=== PATIENT | male | born 1960 | race American Indian/Alaskan Native ===

== ENCOUNTER 2018-12-02 12:50 | Emergency (ER) | payer MEDICAID, OTHER ==
--- NOTE | 2018-12-02 12:55 | Emergency Department Report ---
Blank Doc - Documentation Documentation: [id number] that presents with left figner lac. This initial assessment/diagnostic orders/clinical plan/treatment(s) is/are subject to change based on patient's health status, clinical progression and re- assessment by fellow clinical providers in the ED. Further treatment and workup at subsequent clinical providers discretion. Patient/guardians urged not to elope from the ED as their condition may be serious if not clinically assessed and managed. Initial orders include: 1- Patient sent to [facility] for further evaluation and treatment
[2018-12-02 12:56] VITALS: BP 130/68
== END 2018-12-02 15:02 | disposition left against medical advice (07) ==
LOC: ED 12:50
DX: S61.211A Laceration without foreign body of left index finger without damage to nail, initial encounter (principal); Z53.21 Procedure and treatment not carried out due to patient leaving prior to being seen by health care provider

== ENCOUNTER 2018-12-02 17:11 | Emergency (ER) | payer MEDICAID ==
--- NOTE | 2018-12-02 17:20 | Emergency Department Report ---
Blank Doc - Documentation Documentation: [id number] that presents with left figner lac. This initial assessment/diagnostic orders/clinical plan/treatment(s) is/are subject to change based on patient's health status, clinical progression and re- assessment by fellow clinical providers in the ED. Further treatment and workup at subsequent clinical providers discretion. Patient/guardians urged not to elope from the ED as their condition may be serious if not clinically assessed and managed. Initial orders include: 1- Patient sent to [facility] for further evaluation and treatment
[2018-12-02] MEDS ORDERED: IBUPROFEN PO ONE (19:46)
[2018-12-02] MEDS ORDERED: TYLENOL PO ONE (19:47)
[2018-12-02] MEDS ORDERED: XYLOCAINE 1% MPF 5 mL INFILTRATI ONE (19:47)
[2018-12-02] MEDS ORDERED: KEFLEX PO ONE (19:47)
--- NOTE | 2018-12-02 20:18 | XRay Report ---
Fingers 3 views INDICATION: Finger laceration to index finger. IMPRESSION: There is a deep laceration involving the index finger distally with underlying fracture o f the distal tuft of the index finger consistent with open fracture. Signer Name: Darien Chung MD Signed: 12/02/2018 8:14 PM Workstation Name: [id number]
--- NOTE | 2018-12-02 21:02 | Emergency Department Report ---
- General Chief Complaint: Laceration/Recheck/Suture Stated Complaint: CUT ON FINGER Time Seen by Provider: 12/02/18 17:19 Source: patient Mode of arrival: Ambulatory Limitations: No Limitations - History of Present Illness Initial Comments: Patient is a 57-year-old -[place] male with no past medical history who presents to the ED with complaint of acute onset persistent painful swelling bleeding distal left index finger laceration after a trailer hinge attached to his pickup truck hit him on the left index finger about 6 hours ago. Patient states that the pain and the bleeding of been persistent and the swelling. Patient denies numbness or tingling or weakness of the left index finger. Patient denies any other injury and states that he is up-to-date with his t etanus vaccination. -: Sudden, hour(s) (6) Location: other (left index finger) Extremity Location: Left: Hand (distal left index finger laceration) Place: work Context: accidental Associated Symptoms: pain. denies: loss of feeling/numbness, suspect foreign body present, unable to move injured part, weakness followed by dizziness, nausea/vomiting, fever, other - Related Data Previous Rx's Medication Instructions Recorded Last Taken Type Cyclobenzaprine [Flexeril 10mg] 10 mg PO Q8H PRN #21 tablet 07/20/14 Unknown Rx traMADol [Ultram 50 MG tab] 50 mg PO Q6HR PRN #20 tablet 07/20/14 Unknown Rx Ibuprofen [Motrin] 600 mg PO Q8H PRN #20 tablet 12/02/18 Unknown Rx cephALEXin [Keflex] 500 mg PO Q8HR #30 cap 12/02/18 Unknown Rx traMADol [Ultram] 50 mg PO Q6HR PRN #12 tablet 12/02/18 Unknown Rx Allergies Allergy/AdvReac Type Severity Reaction Status Date / Time No Known Allergies Allergy Verified 07/20/14 08:55 ED Review of Systems ROS: Stated complaint: CUT ON FINGER Other details as noted in HPI Constitutional: denies: chills, fever Eyes: denies: eye pain, eye discharge, vision change ENT: denies: ear pain, throat pain Respiratory: denies: cough, shortness of breath, wheezing Cardiovascular: denies: chest pain, palpitations Endocrine: no symptoms reported Gastrointestinal: denies: abdominal pain, nausea, diarrhea Genitourinary: denies: urgency, dysuria Musculoskeletal: arthralgia (distal left index finger laceration and pain). denies: back pain, joint swelling Skin: other (Bleeding painful laceration of distal left index finger). denies: rash, lesions Neurological: denies: headache, weakness, paresthesias Psychiatric: denies: anxiety, depression Hematological/Lymphatic: denies: easy bleeding, easy bruising ED Past Medical Hx - Past Medical History Previous Medical History?: Yes Hx Hypertension: Yes - Surgical History Past Surgical History?: No - Social History Smoking Status: Never Smoker Substance Use Type: None - Medications Home Medications: Home Medications Medication Instructions Recorded Confirmed Last Taken Type Cyclobenzaprine [Flexeril 10mg] 10 mg PO Q8H PRN #21 tablet 07/20/14 Unknown Rx traMADol [Ultram 50 MG tab] 50 mg PO Q6HR PRN #20 tablet 07/20/14 Unknown Rx Ibuprofen [Motrin] 600 mg PO Q8H PRN #20 tablet 12/02/18 Unknown Rx cephALEXin [Keflex] 500 mg PO Q8HR #30 cap 12/02/18 Unknown Rx traMADol [Ultram] 50 mg PO Q6HR PRN #12 tablet 12/02/18 Unknown Rx ED Physical Exam - General Limitations: No Limitations General appearance: alert, in no apparent distress - Head Head exam: Present: atraumatic, normocephalic, normal inspection - Eye Eye exam: Present: normal appearance, PERRL, EOMI Pupils: Present: normal accommodation - ENT ENT exam: Present: normal exam, normal orophraynx, mucous membranes moist, TM's normal bilaterally, normal external ear exam - Neck Neck exam: Present: normal inspection, full ROM - Respiratory Respiratory exam: Present: normal lung sounds bilaterally. Absent: respiratory distress, wheezes, chest wall tenderness, prolonged expiratory - Cardiovascular Cardiovascular Exam: Present: regular rate, normal rhythm. Absent: systolic murmur, diastolic murmur, rubs, gallop - GI/Abdominal GI/Abdominal exam: Present: soft, normal bowel sounds. Absent: tenderness, guarding, rebound - Rectal Rectal exam: Present: deferred - Extremities Exam Extremities exam: Present: normal inspection, tenderness (Distal left index finger bleeding 5 cm laceration and tenderness), normal capillary refill - Back Exam Back exam: Present: normal inspection, full ROM. Absent: tenderness, CVA tenderness (R), muscle spasm, paraspinal tenderness - Neurological Exam Neurological exam: Present: alert, oriented X3, CN II-XII intact, normal gait, reflexes normal - Psychiatric Psychiatric exam: Present: normal affect, normal mood - Skin Skin exam: Present: warm, dry, intact, normal color, other (Bleeding distal l eft index finger 5 cm laceration). Absent: rash ED Course Vital Signs 12/02/18 17:16 Temperature 98.7 F Pulse Rate 60 Respiratory 17 Rate Blood Pressure 132/80 [Left] O2 Sat by Pulse 100 Oximetry - Reevaluation(s) Reevaluation #1: 12/02/18 21:10 This is a 57-year-old male who presented to the ED with distal left index finger bleeding laceration. In the ED, patient is alert and oriented 3 and is not in distress but appears to be in pain. Patient was treated for pain and since the patient is updated with his tetanus vaccination, none was given. This visit. The left index finger x-ray shows a deep laceration involving the index finger distally with underlying fracture of the distal tuft of the index finger consistent with open fracture. The left index finger laceration was sutured protocol after cleaning it thoroughly. Patient was also treated with oral antibiotics in the ED. Patient tolerated the procedure well and the wound was dressed appropriately and the finger splinted with a spica splint. Patient was discharged home on antibiotics and pain medication and referred to the ortho pedic surgeon respiratory care practitioner Dr. Young for follow-up. Patient is advised to contact tenderness in the first thing in the morning to schedule an appointment for follow-up, and he verbalized understanding and promise to comply. Patient was advised to return to the ED immediately if symptoms get worse. Otherwise the patient is advised to return to the ED in 12-14 days for suture removal. 12/02/18 21:12 - Laceration /Wound Repair Left Distal Finger Wound Location: upper extremity (Distal left index finger) Wound Length (cm): 5 Wound's Depth, Shape: superficial, irregular Wound Explored: contaminated Irrigated w/ Saline (ccs): 50 Betadine Prep?: Yes Anesthesia: 1% Lidocaine Volume Anesthetic (ccs): 5 Wound Debrided: extensive Wound Repaired With: sutures Suture Size/Type: 4:0, proline Number of Sutures: 9 Layer Closure?: No Sterile Dressing Applied?: Yes Progress: Patient tolerated the procedure. The patient's left index finger is neurovascularly intact after the procedure. Patient discharged home on antibiotics and advised follow-up with the orthopedic surgeon respiratory care practitioner Dr. Young for further evaluation. Patient advised to return to the ED in 2 weeks for suture removal. ED Medical Decision Making - Radiology Data Radiology results: report reviewed, image reviewed Findings [facility] [address] [place] [address] XRay Report Signed Patient: GAGE FARR JR MR#: [id number] : 1960 Acct:[id number] Age/Sex: 57 / M ADM Date: 12/02/18 Loc: ED Attending Dr: Ordering Physician: DAVID SELBY Date of Service: 12/02/18 Procedure(s): XR finger(s) 2+V LT Accession Number(s): [id number] cc: DAVID SELBY Fluoro Time In Minutes: Fingers 3 views INDICATION: Finger laceration to index finger. IMPRESSION: There is a deep laceration involving the index finger distally with underlying fracture of the distal tuft of the index finger consistent with open fracture. Signer Name: Darien Chung MD Signed: 12/02/2018 8:14 PM Workstation Name: [id number] Transcribed By: Dictated By: Darien Chung MD Electronically Authenticated By: Darien Chung MD Signed Date/Time: 12/02/182013 - Medical Decision Making This is a 57-year-old male who presented to the ED with distal left index finger bleeding laceration. In the ED, patient is alert and oriented 3 and is not in distress but appears to be in pain. Patient was treated for pain and since the patient is updated with his tetanus vaccination, none was given. This visit. The left index finger x-ray shows a deep laceration involving the index finger distally with underlying fracture of the distal tuft of the index finger consistent with open fracture. The left index finger laceration was sutured protocol after cleaning it thoroughly. Patient was also treated with oral antibiotics in the ED. Patient tolerated the procedure well and the wound was dressed appropriately and the finger splinted with a spica splint. Patient was discharged home on antibiotics and pain medication and referred to the orthopedic surgeon respiratory care practitioner Dr. Young for follow-up. Patient is advised to contact tenderness in the first thing in the morning to schedule an appointment for follow-up, and he verbalized understanding and promise to comply. Patient was advised to return to the ED immediately if symptoms get worse. Otherwise the patient is advised to return to the ED in 12-14 days for suture removal. - Differential Diagnosis left index finger fracture; left index finger laceration; finger contusion Critical care attestation.: If time is entered above; I have spent that time in minutes in the direct care of this critically ill patient, excluding procedure time. ED Disposition Clinical Impression: Laceration of left index finger w/o foreign body w/o damage to nail Qualifiers: Encounter type: initial encounter Qualified Code(s): S61.211A - Laceration without foreign body of left index finger without damage to nail, initial encounter Open fracture of phalanx of left index finger Qualifiers: Encounter type: initial encounter Phalanx: distal Fracture alignment: displaced Qualified Code(s): S62.631B - Displaced fracture of distal phalanx of left index finger, initial encounter for open fracture Disposition: DC-01 TO HOME OR SELFCARE Is pt being admited?: No Does the pt Need Aspirin: No Condition: Stable Instructions: Finger Fracture (ED), Finger Laceration (ED) Additional Instructions: Take medications with food, drink plenty of fluids and follow-up with the orthopedic surgeon Dr. Young for further evaluation. Contact Dr. Young's office first thing in the morning to schedule an appointment for follow-up. Return to the ED immediately if symptoms get worse. Prescriptions: cephALEXin [Keflex] 500 mg PO Q8HR #30 cap Ibuprofen [Motrin] 600 mg PO Q8H PRN #20 tablet PRN Reason: Pain traMADol [Ultram] 50 mg PO Q6HR PRN #12 tablet PRN Reason: Pain Referrals: BOBBI YOUNG MD [Staff Physician] - 3-5 Days Time of Disposition: 21:00 Print Language: PARAGUAYAN
[2018-12-02 21:13] VITALS: BP 148/92
== END 2018-12-02 21:13 | disposition home or self-care (01) ==
LOC: ED 17:11
DX: S62.631B Displaced fracture of distal phalanx of left index finger, initial encounter for open fracture (principal); I10 Essential (primary) hypertension; Z79.899 Other long term (current) drug therapy; W22.8XXA Striking against or struck by other objects, initial encounter; Y93.89 Activity, other specified; Y92.89 Other specified places as the place of occurrence of the external cause; Y99.8 Other external cause status

== ENCOUNTER 2020-07-15 09:34 | Emergency (ER) | payer MEDICARE ==
[2020-07-15 09:46] VITALS: BP 148/100
--- NOTE | 2020-07-15 09:47 | Emergency Department Report ---
ED Medical Clearance HPI - General Chief complaint: Medical Clearance Stated complaint: MISSED DIALYSIS Time Seen by Provider: 07/15/20 09:42 Source: patient Mode of arrival: Ambulatory - History of Present Illness Initial comments: Mr. Greenfield is a 59-year-old male who presents to the emergency room stating that he missed dialysis on and that he needs medical clearance to return to dialysis. He denies any chest pain shortness of breath headache no nausea no vomiting. His blood pressure is 148/100 temperature of 98.2 he is in no acute distress with no complaints. His next dialysis appointment is at 10 AM today and he is able to get there Alledged Intoxication: No Compliant with Home Medications: No Traumatic Symptoms: denies traumatic injury Treatments Prior to Arrival: none Allergies/Adverse reactions: Allergies Allergy/AdvReac Type Severity Reaction Status Date / Time No Known Allergies Allergy Verified 04/05/20 17:13 ED Review of Systems ROS: Stated complaint: MISSED DIALYSIS Other details as noted in HPI Comment: All other systems reviewed and negative Constitutional: no symptoms reported Respiratory: no symptoms reported Endocrine: no symptoms reported ED Past Medical Hx - Past Medical History Previous Medical History?: Yes Hx Hypertension: Yes Hx Renal Disease: Yes (HD [id number]) - Surgical History Past Surgical History?: Yes Additional Surgical History: Nephrectomy, Right arm AV fistula - Social History Smoking Status: Never Smoker Substance Use Type: None ED Physical Exam - General Limitations: No Limitations General appearance: alert, in no apparent distress - Head Head exam: Present: atraumatic - Eye Eye exam: Present: normal appearance - ENT ENT exam: Present: normal exam - Neck Neck exam: Present: normal inspection - Respiratory Respiratory exam: Present: normal lung sounds bilaterally - Cardiovascular Cardiovascular Exam: Present: regular rate - Extremities Exam Extremities exam: Present: other (Right upper arm AV fistula) ED Course Vital Signs 07/15/20 09:39 Temperature 98.2 F Pulse Rate 69 Respiratory 20 Rate Blood Pressure 148/100 O2 Sat by Pulse 99 Oximetry ED Medical Decision Making - Medical Decision Making This is a 59-year-old male presents to the emergency room states he needs medical clearance prior to going to his dialysis appointment this morning. Patient states he missed his dialysis appointment on . He plans to go today but was told he needed a note to bring. On examination patient is awake alert and oriented x3 he denies any complaints no chest pain no shortness of breath he has blood pressure of 148/100 pulse rate of 69 respiration 20 oxygen saturation 99% on room air he is afebrile at 98.2. Patient vital signs are stable he is asymptomatic with no complaints he will be released to go to his dialysis appointment at 10 AM - Differential Diagnosis Medical clearance missed dialysis appointment ED Disposition Disposition: MED SCREENING EXAM-CONT Is pt being admited?: No Does the pt Need Aspirin: No Condition: Stable Additional Instructions: Please report to the dialysis center for your usual dialysis. Return to the emergency room if you develop any symptoms such as chest pain shortness of breath. Referrals: THOMPSON AGEE MD [Staff Physician] - 3-5 Days Time of Disposition: 09:48
== END 2020-07-15 09:57 | disposition home or self-care (01) ==
LOC: ED 09:34
DX: Z91.15 Patient's noncompliance with renal dialysis (principal); Z53.21 Procedure and treatment not carried out due to patient leaving prior to being seen by health care provider

== ENCOUNTER 2020-08-05 02:22 | Emergency (ER) | payer MEDICARE ==
[2020-08-05 03:12] VITALS: BP 135/79
[2020-08-05] MEDS ORDERED: oxyCODONE /ACETAMINOPHEN 5-325MG TAB PO ONE (03:12)
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
== END 2020-08-05 06:49 | disposition home or self-care (01) ==
LOC: ED 02:22
DX: S00.83XA Contusion of other part of head, initial encounter (principal); S00.03XA Contusion of scalp, initial encounter; S10.93XA Contusion of unspecified part of neck, initial encounter; I10 Essential (primary) hypertension; Z98.890 Other specified postprocedural states; Z87.891 Personal history of nicotine dependence; Z79.899 Other long term (current) drug therapy; W22.8XXA Striking against or struck by other objects, initial encounter; Y93.89 Activity, other specified; Y92.89 Other specified places as the place of occurrence of the external cause; Y99.8 Other external cause status
CPT/HCPCS: 70450; 70486; 72125

== ENCOUNTER 2021-01-09 18:53 | Emergency (ER) | payer MEDICARE ==
[2021-01-09 19:02] VITALS: BP 124/76
--- NOTE | 2021-01-09 19:33 | Emergency Department Report ---
ED Fall HPI - General Chief Complaint: Fall Stated Complaint: FALL/CHEST PAIN Time Seen by Provider: 01/09/21 19:22 Source: patient Mode of arrival: Ambulatory - History of Present Illness Initial Comments: Patient is a 60-year-old male presents emergency room complaints of a fall that occurred 3 weeks ago. Patient states he was approximately 8 feet up on a ladder. He states that the ladder gave way underneath him which caused him to fall. He states he hit his left elbow against the ladder on the way down. He is complaining of left elbow pain and swelling. He is also complaining of left shoulder pain and left-sided chest wall pain. He states his pain increases with lying on his left side. He denies any loss of consciousness, vomiting, vision changes, numbness, weakness, bowel or bladder incontinence, shortness of breath, neck pain, back pain. Past medical history of hypertension and end-stage renal disease. No allergies to medications. - Related Data Previous Rx's Medication Instructions Recorded Last Taken Type Acetaminophen/Codeine [Tylenol 1 tab PO Q6H PRN #10 tab 08/05/20 Unknown Rx /Codeine # 3 tab] Acetaminophen/Codeine [Tylenol 1 tab PO Q6H PRN #12 tab 01/09/21 Unknown Rx /Codeine # 3 tab] Allergies Allergy/AdvReac Type Severity Reaction Status Date / Time No Known Allergies Allergy Verified 01/09/21 18:54 ED Review of Systems ROS: Stated complaint: FALL/CHEST PAIN Other details as noted in HPI Comment: All other systems reviewed and negative ED Past Medical Hx - Past Medical History Hx Hypertension: Yes Hx Renal Disease: Yes (HD Kfks-Qhfbl-Cfc) - Surgical History Additional Surgical History: Nephrectomy, Right arm AV fistula - Social History Smoking Status: Former Smoker - Medications Home Medications: Home Medications Medication Instructions Recorded Confirmed Last Taken Type Acetaminophen/Codeine [Tylenol 1 tab PO Q6H PRN #10 tab 08/05/20 Unknown Rx /Codeine # 3 tab] Acetaminophen/Codeine [Tylenol 1 tab PO Q6H PRN #12 tab 01/09/21 Unknown Rx /Codeine # 3 tab] ED Physical Exam - General Limitations: No Limitations General appearance: alert, in no apparent distress - Head Head exam: Present: atraumatic, normocephalic - Eye Eye exam: Present: normal appearance - ENT ENT exam: Present: mucous membranes moist - Respiratory Respiratory exam: Present: normal lung sounds bilaterally, chest wall tenderness (mild reproducible left anterior chest wall ttp, no crepitus, no deformity, no ecchymosis ). Absent: respiratory distress, wheezes, rales, rhonchi, stridor, accessory muscle use, decreased breath sounds, prolonged expiratory - Cardiovascular Cardiovascular Exam: Present: regular rate, normal rhythm, normal heart sounds. Absent: systolic murmur, rubs, gallop - Extremities Exam Extremities exam: Present: other (ttp to the left anterior shoulder, ttp to the left posterior elbow, there is edema present to the left posterior elbow in the olecranon region, FROM of the LUE, no obvious deformity, neurovascularly intact) - Neurological Exam Neurological exam: Present: alert, oriented X3, CN II-XII intact, normal gait. Absent: motor sensory deficit - Psychiatric Psychiatric exam: Present: normal affect, normal mood - Skin Skin exam: Present: warm, dry, intact ED Course Vital Signs 01/09/21 18:59 Temperature 98.8 F Pulse Rate 78 Respiratory 20 Rate Blood Pressure 124/76 O2 Sat by Pulse 99 Oximetry ED Medical Decision Making - EKG Data EKG shows normal: sinus rhythm Rate: normal - EKG Data 01/09/21 21:25 Right axis deviation Left atrial enlargement No STEMI - Radiology Data Radiology results: report reviewed Ordering Physician: DAVID GRANADOS Date of Service: 01/09/21 Procedure(s): XR shoulder 2+V LT Accession Number(s): [id number] cc: DAVID GRANADOS Fluoro Time In Minutes: LEFT SHOULDER 3 VIEWS INDICATION: pain/edema after fall from 8ft ladder 3 weeks ago. COMPARISON: None. IMPRESSION: No acute osseous or soft tissue abnormality. No significant DJD. LEFT ELBOW 3 VIEWS INDICATION: pain/edema after fall from 8ft ladder 3 weeks ago. COMPARISON: None. IMPRESSION: There is posterior soft tissue swelling. No acute osseous injury or joint pathology is detected. CHEST 2 VIEWS INDICATION: pain/edema after fall from 8ft ladder 3 weeks ago. COMPARISON: None FINDINGS: Support devices: None. Heart: Within normal limits. Lungs/pleura: No acute air space or interstitial disease. No pneumothorax. Additional findings: No displaced rib fracture is detected on x-ray. IMPRESSION: No acute findings. Signer Name: Yamil Reynoso Jr, MD Signed: 01/09/2021 8:05 PM Workstation Name: [id number] Transcribed By: TTR Dictated By: YAMIL REYNOSO JR, MD Electronically Authenticated By: YAMIL REYNOSO JR, MD Signed Date/Time: 01/09/212004 DD/ 02 TD/TT: - Medical Decision Making Patient is a 60-year-old male presents emergency room complaints of a fall that occurred 3 weeks ago. Patient states he was approximately 8 feet up on a ladder. He states that the ladder gave way underneath him which caused him to fall. He states he hit his left elbow against the ladder on the way down. He is complaining of left elbow pain and swelling. He is also complaining of left shoulder pain and left-sided chest wall pain. He states his pain increases with lying on his left side. He denies any loss of consciousness, vomiting, vision changes, numbness, weakness, bowel or bladder incontinence, shortness of breath, neck pain, back pain. Past medical history of hypertension and end-stage renal disease. No allergies to medications. Vitals are normal. On exam:mild reproducible left anterior chest wall ttp, no crepitus, no deformity, no ecchymosis, ttp to the left anterior shoulder, ttp to the left posterior elbow, there is edema present to the left posterior elbow in the olecranon region, FROM of the LUE, no obvious deformity, neurovascularly intact, no focal neuro deficits, ambulatory without difficulty. X-ray left shoulder IMPRESSION: No acute osseous or soft tissue abnormality. No significant DJD. X-ray left elbow IMPRESSION: There is posterior soft tissue swelling. No acute osseous injury or joint pathology is detected. Chest x-ray No acute findings. EKG with right axis deviation, left atrial enlargement, no STEMI. Discussed all results with patient answer questions. Patient given prescription for pain medication. Patient placed in Cassius wrap to the elbow by EMT and remain neurovascularly intact. Advised patient Please take medication as prescribed as needed. Follow-up with orthopedic doctor. Return to emergency room for any new or worsening symptoms. Critical care attestation.: If time is entered above; I have spent that time in minutes in the direct care of this critically ill patient, excluding procedure time. ED Disposition Clinical Impression: Chest wall pain, Left elbow pain Fall Qualifiers: Encounter type: initial encounter Qualified Code(s): W19.XXXA - Unspecified fall, initial encounter Left shoulder pain Qualifiers: Chronicity: acute Qualified Code(s): M25.512 - Pain in left shoulder Elbow swelling Qualifiers: Laterality: left Qualified Code(s): M25.422 - Effusion, left elbow Disposition: 01 HOME / SELF CARE / HOMELESS Is pt being admited?: No Does the pt Need Aspirin: No Condition: Stable Instructions: Elbow Bursitis Additional Instructions: Please take medication as prescribed as needed. Follow-up with orthopedic doctor. Return to emergency room for any new or worsening symptoms. Prescriptions: Acetaminophen/Codeine [Tylenol /Codeine # 3 tab] 1 tab PO Q6H PRN #12 tab PRN Reason: Pain , Severe (7-10) Referrals: BOBBI OLIVER MD [Staff Physician] - 3-5 Days [facility] [Provider Group] - 3-5 Days Time of Disposition: 20:31 Print Language: GAMBIAN
--- NOTE | 2021-01-09 20:09 | XRay Report ---
LEFT SHOULDER 3 VIEWS INDICATION: pain/edema after fall from 8ft ladder 3 weeks ago. COMPARISON: None. IMPRESSION: No acute osseous or soft tissue abnormality. No significant DJD. LEFT ELBOW 3 VIEWS INDICATION: pain/edema after fall from 8ft ladder 3 weeks ago. COMPARISON: None. IMPRESSION: There is posterior soft tissue swelling. No acute osseous injury or joint pathology is detected. CHEST 2 VIEWS INDICATION: pain/edema after fall from 8ft ladder 3 weeks ago. COMPARISON: None FINDINGS: Support devices: None. Heart: Within normal limits. Lungs/pleura: No acute air space or interstitial disease. No pneumothorax. Additional findings: No displaced rib fracture is detected on x-ray. IMPRESSION: No acute findings. Signer Name: Yamil Reynoso Jr, MD Signed: 01/09/2021 8:05 PM Workstation Name: [id number]
--- NOTE | 2021-01-10 11:06 | Electrocardiograph Report ---
[facility] Test Date: 2021-01-09 Test Time: 19:06:14 Pat Name: GAGE FARR Department: Room: Gender: M Monorail Helper: MICHAEL : 1960 Requested By: XOCHITL FRY Order Number: [id number] Reading MD: Braeden Jamison Measurements Intervals Kelly Rate: 77 P: 54 WY: 168 QRS: -10 QRSD: 82 T: 18 QT: 381 QTc: 430 Interpretive Statements Sinus rhythm Probable left atrial enlargement Probable left ventricular hypertrophy No previous ECG available for comparison Electronically Signed On 01-10-2021 11:05:59 EDT by Braeden Jamison
== END 2021-01-09 20:59 | disposition home or self-care (01) ==
LOC: ED 18:53
DX: M25.522 Pain in left elbow (principal); R07.89 Other chest pain; M25.512 Pain in left shoulder; M79.89 Other specified soft tissue disorders; I12.0 Hypertensive chronic kidney disease with stage 5 chronic kidney disease or end stage renal disease; N18.6 End stage renal disease; Z98.890 Other specified postprocedural states; Z87.891 Personal history of nicotine dependence; W17.89XA Other fall from one level to another, initial encounter; Y93.89 Activity, other specified; Y92.89 Other specified places as the place of occurrence of the external cause; Y99.8 Other external cause status
CPT/HCPCS: 71046; 93005; 99283

== ENCOUNTER 2021-09-16 05:39 | Emergency (ER) | payer MEDICARE ==
[2021-09-16] MEDS ORDERED: ASPIRIN 325 MG TAB PO ONE ×2 (07:06→14:27)
[2021-09-16 07:40] LABS: Basophils # (Auto) 0.1 K/mm3 (0.0-0.1); Basophils % (Auto) 1.2 % (0.0-1.8); Eosinophils # (Auto) 0.1 K/mm3 (0.0-0.4); Hematocrit 34.6 % (35.5-45.6); Hemoglobin 11.4 gm/dl (11.8-15.2); Lymphocytes # (Auto) 0.9 K/mm3 (1.2-5.4); Lymphocytes % (Auto) 14.3 % (13.4-35.0); Mean Corpuscular HGB Conc 33 % (32-34); Mean Corpuscular Volume 85 fl (84-94); Monocytes # (Auto) 0.8 K/mm3 (0.0-0.8); Monocytes % (Auto) 13.2 % (0.0-7.3); Platelet Count 228 K/mm3 (140-440); Red Blood Count 4.05 M/mm3 (3.65-5.03); Red Cell Distribution Width 14.8 % (13.2-15.2)
--- NOTE | 2021-09-16 07:43 | XRay Report ---
CHEST 2 VIEWS INDICATION / CLINICAL INFORMATION: arrhythmia. COMPARISON: 01/09/2021 FINDINGS: SUPPORT DEVICES: None. HEART / MEDIASTINUM: No significant abnormality. LUNGS / PLEURA: No significant pulmonary or pleural abnormality. No pneumothorax. ADDITIONAL FINDINGS: No significant additional findings. IMPRESSION: 1. No acute findings. Signer Name: Donavon Love DO Signed: 09/16/2021 7:38 AM Workstation Name: [id number]
[2021-09-16 08:07] LABS: Albumin 4.5 g/dL (3.9-5); Calcium 9.9 mg/dL (8.4-10.2)
[2021-09-16 08:21] LABS: Chol/HDL Ratio 2.33 %
--- NOTE | 2021-09-16 13:25 | Emergency Department Report ---
ED General Adult HPI - General Chief complaint: Arrhythmia/Palpitations Stated complaint: it feels like my heart is pausing or stop Time Seen by Provider: 09/16/21 13:23 Source: patient, RN notes reviewed, old records reviewed Mode of arrival: Ambulatory Limitations: No Limitations - History of Present Illness Initial comments: The patient was evaluated in the emergency department for symptoms described in the history of present illness. He/she was evaluated in the context of the global COVID-19 pandemic, which necessitated consideration that the patient might be at risk for infection with the virus that causes COVID-19. Institutional protocols and algorithms that pertain to the evaluation of patients at risk for COVID-19 are in a state of rapid change based on information released by regulatory bodies including the CDC and federal and state organizations. These policies and algorithms were followed during the patient's care in the emergency department. Please note that these policies, procedures and recommendations changed on a rapid basis. Nephrology: Dr. Ireland This is a 60-year-old gentleman, with a past medical history of end-stage renal disease on hemodialysis, Friday, , Friday. He was last dialyzed yesterday. He does endorse a history of recreational cocaine and marijuana consumption. He reports that he recreationally consumed cocaine and marijuana last night, late in the evening, through smoking. He reports that a short while later, he felt like his heart was going to stop beating. He currently denies physical pain with the exception of right sacroiliac pain. He denies travel, surgery, immobilization, DVT and pulmonary embolism risk factors. He reports that he is on a number of medications, but does not recall the names of his medications. He states his medications have not been changed or adjusted recently. He is not homicidal or suicidal. He denies hematemesis and bright red blood per rectum. He denies IV drug use He reports that he feels like he is back to his baseline -: Sudden, hour(s) Consistency: now resolved Improves with: none Worsens with: none Associated Symptoms: denies other symptoms - Related Data Previous Rx's Medication Instructions Recorded Last Taken Type Acetaminophen/Codeine [Tylenol 1 tab PO Q6H PRN #10 tab 08/05/20 Unknown Rx /Codeine # 3 tab] Acetaminophen/Codeine [Tylenol 1 tab PO Q6H PRN #12 tab 01/09/21 Unknown Rx /Codeine # 3 tab] Allergies Allergy/AdvReac Type Severity Reaction Status Date / Time No Known Allergies Allergy Verified 09/16/21 05:56 ED Review of Systems ROS: Stated complaint: HEART TROUBLE Other details as noted in HPI Constitutional: denies: fever Eyes: denies: eye discharge ENT: denies: epistaxis Respiratory: denies: cough, wheezing Cardiovascular: as per HPI. denies: chest pain, syncope Gastrointestinal: as per HPI Musculoskeletal: back pain, arthralgia Neurological: weakness Psychiatric: denies: homicidal thoughts, suicidal thoughts ED Past Medical Hx - Past Medical History Previous Medical History?: Yes Hx Hypertension: Yes Hx Renal Disease: Yes (HD [id number]) - Surgical History Past Surgical History?: Yes Additional Surgical History: Nephrectomy, Right arm AV fistula - Social History Smoking Status: Never Smoker Substance Use Type: None - Medications Home Medications: Home Medications Medication Instructions Recorded Confirmed Last Taken Type Acetaminophen/Codeine [Tylenol 1 tab PO Q6H PRN #10 tab 08/05/20 Unknown Rx /Codeine # 3 tab] Acetaminophen/Codeine [Tylenol 1 tab PO Q6H PRN #12 tab 01/09/21 Unknown Rx /Codeine # 3 tab] ED Physical Exam - General Limitations: No Limitations General appearance: alert, in no apparent distress - Head Head exam: Present: atraumatic, normocephalic - Eye Eye exam: Present: normal appearance, EOMI. Absent: nystagmus - ENT ENT exam: Present: normal exam, normal orophraynx, mucous membranes moist, normal external ear exam - Neck Neck exam: Present: normal inspection, full ROM. Absent: tenderness, mening ismus - Respiratory Respiratory exam: Present: normal lung sounds bilaterally. Absent: respiratory distress, wheezes, rales, rhonchi, stridor, decreased breath sounds - Cardiovascular Cardiovascular Exam: Present: regular rate, normal rhythm, normal heart sounds. Absent: bradycardia, tachycardia, irregular rhythm, systolic murmur, diastolic murmur, rubs, gallop - GI/Abdominal GI/Abdominal exam: Present: soft. Absent: distended, tenderness, guarding, rebound, rigid, pulsatile mass - Rectal Rectal exam: Present: deferred - Extremities Exam Extremities exam: Present: normal inspection (There is a right upper extremity fistula, with appropriate thrill, without redness, pus or streaking), full ROM, other (2+ pulses noted in the bilateral upper and lower extremities. There is no palpable cord. negative Homans sign. Muscular compartments are soft. The pelvis is stable.). Absent: calf tenderness - Back Exam Back exam: Present: normal inspection. Absent: tenderness, CVA tenderness (R), CVA tenderness (L), paraspinal tenderness, vertebral tenderness - Neurological Exam Neurological exam: Present: alert, other (No facial droop. Tongue midline. Extraocular movements intact bilaterally. Facial sensation intact to light touch in V1, V2, V3 distribution bilaterally. 5 and a 5 strength in 4 extremities. Sensation intact to light touch in 4 extremities.). Absent: motor sensory deficit - Psychiatric Psychiatric exam: Present: normal affect, normal mood. Absent: homicidal ideation, suicidal ideation - Skin Skin exam: Present: warm, dry, intact, normal color. Absent: rash ED Course Vital Signs 09/16/21 09/16/21 09/16/21 05:53 12:06 13:32 Temperature 97.6 F Pulse Rate 61 83 80 Respiratory 18 18 18 Rate Blood Pressure 167/96 148/85 115/65 [Left] O2 Sat by Pulse 96 99 99 Oximetry O2 Sat by Pulse Oximetry [ Digit-Finger] 09/16/21 09/16/21 13:33 13:55 Temperature Pulse Rate Respiratory 18 Rate Blood Pressure [Left] O2 Sat by Pulse 99 Oximetry O2 Sat by Pulse 99 Oximetry [ Digit-Finger] - Reevaluation(s) Reevaluation #1: 09/16/21 13:53 Differential diagnosis, including but not limited to: Drug abuse, arrhythmia, electrolyte derangement, sleep apnea Assessment and plan: 60-year-old gentleman, who is not currently tachycardic, tachypneic or hypoxic, who is awake, alert, oriented, sober with a GCS of 15, presenting to the department with a complaint of painless sensation of having his heart slowed down or stopped, in close proximity to both cocaine and marijuana consumption. Patient advised to abstain from recreational drug consumption. He is not hypoxic at this time, his chest x-ray is clear, and his physical exam is benign and noncontributory. On my initial assessment, the patient is sleeping comfortably in his stretcher, and he is in no acute distress. He cannot recall the names of all of his medications. Elevated troponin is likely secondary to chronic renal insufficiency and a type II troponin leak. His EKG is unchanged from prior EKG. He is observed in this ER for hours without clinical decompensation. Discontinue marijuana, smoke product consumption as well as crack cocaine consumption. Follow-up with outpatient primary care or nephrology to go through current blood pressure medications. Follow-up with outpatient primary care to determine need for outpatient sleep study. Return precautions are reviewed. All questions answered 09/16/21 13:55 - Pulse Oximetry Interpretation Digit-Finger Initial Pulse Oximetry Readin O2 Sat by Pulse Oximetry: 99 Actions Taken: none ED Medical Decision Making - Lab Data Result diagrams: 09/16/21 07:16 09/16/21 07:16 Vital Signs 09/16/21 09/16/21 09/16/21 05:53 12:06 13:32 Temperature 97.6 F Pulse Rate 61 83 80 Respiratory 18 18 18 Rate Blood Pressure 167/96 148/85 115/65 [Left] O2 Sat by Pulse 96 99 99 Oximetry 09/16/21 13:33 Temperature Pulse Rate Respiratory 18 Rate Blood Pressure [Left] O2 Sat by Pulse 99 Oximetry Lab Results 09/16/21 09/16/21 09/16/21 Range/Units 07:16 07:16 11:29 WBC 6.1 (4.5-11.0) K/mm3 RBC 4.05 (3.65-5.03) M/mm3 Hgb 11.4 L (11.8-15.2) gm/dl Hct 34.6 L (35.5-45.6) % MCV 85 (84-94) fl MCH 28 (28-32) pg MCHC 33 (32-34) % RDW 14.8 (13.2-15.2) % Plt Count 228 (140-440) K/mm3 Lymph % (Auto) 14.3 (13.4-35.0) % Burt % (Auto) 13.2 H (0.0-7.3) % Eos % (Auto) 2.0 (0.0-4.3) % Baso % (Auto) 1.2 (0.0-1.8) % Lymph # (Auto) 0.9 L (1.2-5.4) K/mm3 Burt # (Auto) 0.8 (0.0-0.8) K/mm3 Eos # (Auto) 0.1 (0.0-0.4) K/mm3 Baso # (Auto) 0.1 (0.0-0.1) K/mm3 Seg Neutrophils % 69.3 (40.0-70.0) % Seg Neutrophils # 4.2 (1.8-7.7) K/mm3 Sodium 135 L (137-145) mmol/L Potassium 4.7 (3.6-5.0) mmol/L Chloride 94.0 L (98-107) mmol/L Carbon Dioxide 26 (22-30) mmol/L Anion Gap 20 mmol/L BUN 41 H (9-20) mg/dL Creatinine 7.7 H (0.8-1.3) mg/dL Estimated GFR 9 ml/min BUN/Creatinine Ratio 5 % Glucose 111 H (75-100) mg/dL Calcium 9.9 (8.4-10.2) mg/dL Total Bilirubin 0.30 (0.1-1.2) mg/dL AST 14 (5-40) units/L ALT 15 (7-56) units/L Alkaline Phosphatase 69 (35-129) units/L Troponin T 0.040 H 0.038 H (0.00-0.029) ng/mL Total Protein 7.6 (6.3-8.2) g/dL Albumin 4.5 (3.9-5) g/dL Albumin/Globulin Ratio 1.5 % Triglycerides 92 (2-149) mg/dL Cholesterol 124 (50-199) mg/dL LDL Cholesterol Direct 60 (50-130) mg/dL HDL Cholesterol 53 (40-59) mg/dL Cholesterol/HDL Ratio 2.33 % - EKG Data -: EKG Interpreted by [facility] EKG shows normal: sinus rhythm Rate: normal - EKG Data Interpretation: unchanged when compared t 09/16/21 13:52 The EKG today is unchanged from prior EKG from December 2020. The EKG is initially interpreted at 06: 00 I interpret this EKG at 13: 52 Sinus rhythm, 67 bpm, left axis deviation, left anterior fascicular block, normal P wave axis, QTC 4 4 8 ms, and left ventricular hypertrophy. This is an abnormal EKG. This is not a STEMI - Radiology Data Radiology results: pending, report reviewed, image reviewed CHEST 2 VIEWS INDICATION / CLINICAL INFORMATION: arrhythmia. COMPARISON: 01/09/2021 FINDINGS: SUPPORT DEVICES: None. HEART / MEDIASTINUM: No significant abnormality. LUNGS / PLEURA: No significant pulmonary or pleural abnormality. No pneumothorax. ADDITIONAL FINDINGS: No significant additional findings. IMPRESSION: 1. No acute findings. Signer Name: Donavon Love DO Signed: 09/16/2021 6:38 AM Workstation Name: [id number] Critical care attestation.: If time is entered above; I have spent that time in minutes in the direct care of this critically ill patient, excluding procedure time. ED Disposition Clinical Impression: ESRD (end stage renal disease), Polysubstance abuse Disposition: HOME / SELF CARE / HOMELESS Is pt being admited?: No Does the pt Need Aspirin: No Condition: Good Additional Instructions: Recommend that patient abstain from alcohol, tobacco, drug consumption. Recommend that patient follow-up with a primary care doctor or awning erector within the next week for repeat checkup and evaluation. Please take a complete list of medications with you when you go to follow-up for outpatient evaluation. Patient should also discussed need for outpatient sleep study to evaluate for obstructive sleep apnea with his primary care doctor. Consumption of drugs may cause , disability, paralysis, and loss of quality of life. Please return to the emergency room right away with new pain, worsened pain, migration of pain, projectile vomiting, change in mental status, confusion, inability tolerate liquid feeds, new, worsened or different symptoms not present on the initial emergency room evaluation Participate in physical activities as tolerated, weightbearing as tolerated, may take [id number] Tylenol as needed for physical pain Referrals: MANISHA DE LOS SANTOS MD [Referring] - 3-5 Days [facility] [Provider Group] - 3-5 Days
[2021-09-16 13:32] VITALS: BP 115/65
[2021-09-16] MEDS ORDERED: ACETAMINOPHEN 325 MG TAB PO ONE (13:56)
--- NOTE | 2021-09-17 10:44 | Electrocardiograph Report ---
[facility] Test Date: 2021-09-16 Test Time: 05:47:54 Pat Name: GAGE FARR Department: Room: Gender: M [employer] Writer: AZIZA : 1960 Requested By: ED DOC Order Number: [id number] Reading MD: Michele Lara Measurements Intervals [place] Rate: 67 P: 67 SD: 170 QRS: 7 QRSD: 83 T: 56 QT: 422 QTc: 448 Interpretive Statements Sinus rhythm Compared to ECG 01/09/2021 19:06:14 No significant changes Electronically Signed On 09-17-2021 10:44:37 EDT by Michele Lara
== END 2021-09-16 14:46 | disposition home or self-care (01) ==
LOC: ED 05:39
DX: F19.10 Other psychoactive substance abuse, uncomplicated (principal); I12.0 Hypertensive chronic kidney disease with stage 5 chronic kidney disease or end stage renal disease; N18.6 End stage renal disease; Z79.899 Other long term (current) drug therapy
CPT/HCPCS: 36415; 71046; 80053; 80061; 84484; 85025; 93005; 99284

== ENCOUNTER 2021-11-01 23:29 | Emergency (ER) | payer MEDICAID, MEDICARE ==
[2021-11-01 23:33] VITALS: BP 154/84
[2021-11-02 00:20] LABS: Basophils # (Auto) 0.1 K/mm3 (0.0-0.1); Basophils % (Auto) 1.2 % (0.0-1.8); Eosinophils # (Auto) 0.2 K/mm3 (0.0-0.4); Eosinophils % (Auto) 4.3 % (0.0-4.3); Hematocrit 27.8 % (35.5-45.6); Lymphocytes # (Auto) 1.2 K/mm3 (1.2-5.4); Lymphocytes % (Auto) 24.8 % (13.4-35.0); Mean Corpuscular HGB Conc 33 % (32-34); Mean Corpuscular Volume 87 fl (84-94); Monocytes # (Auto) 0.5 K/mm3 (0.0-0.8); Platelet Count 245 K/mm3 (140-440); Red Blood Count 3.19 M/mm3 (3.65-5.03)
[2021-11-02 00:38] LABS: Albumin 3.9 g/dL (3.9-5)
== END 2021-11-02 09:30 | disposition left against medical advice (07) ==
LOC: ED 23:29
DX: R53.1 Weakness (principal); Z53.21 Procedure and treatment not carried out due to patient leaving prior to being seen by health care provider
CPT/HCPCS: 36415; 80053; 85025